=== PATIENT | male | born 1945 | race Caucasian/White ===

== ENCOUNTER 2019-12-22 13:24 | Inpatient (IN) ==
[2019-12-22] MEDS ORDERED: PIPERACILLIN/TAZOBACTAM 3,375 MG in SODIUM CHLORIDE 0.9% 100 ML IV STA (13:50)
[2019-12-22] MEDS ORDERED: VANCOMYCIN INJ 1,000 MG in SODIUM CHLORIDE 0.9% 250 ML IV STA (13:50)
[2019-12-22] MEDS ORDERED: SODIUM CHLORIDE 0.9% 1,000 ML IV STA ×2 (13:50→15:10)
[2019-12-22 14:54] LABS: Basophils # 0.1 10*3/uL (0.0-0.2); Basophils % 0.3 % (0.0-0.8); Eosinophils # 0.2 10*3/uL (0.0-0.87); Hemoglobin 10.3 GM/DL (14.0-18.0); Immature Granulocytes % 0.8 %; Immature Granulocytes Absolute 0.16 #; Lymphocytes # 1.4 10*3/uL (1.4-4.0); Lymphocytes % 7.5 % (21.2-54.2); Mean Corpuscular HGB Conc 31.2 GM/DL (32-36); Mean Corpuscular Volume 91.2 FL (87-102); Mean Platelet Volume 10.3 FL (9.6-12.0); Monocytes % 5.6 % (1.7-12.7); Neutrophils % 84.8 % (38.7-73.9); Platelet Count 300 T/CUMM (130-400); Red Blood Count 3.62 MC/CUMM (3.8-5.5); Red Cell Distribution Width 16.8 % (9.3-17.3); White Blood Count 19.3 T/CUMM (4-12)
[2019-12-22 15:03] LABS: Apearance,Urine CLOUDY (Clear); Bilirubin,Urine Negative (Negative); Blood, Urine Moderate mg/dL (Negative); Glucose,Urine (UA) Negative (Negative); Hyaline Casts,Urine 62 /LPF (0-3); Ketones,Urine Negative (Negative); Mucus,Urine Many /LPF (Occasional); Nitrite,Urine Negative (Negative); Protein,Urine 100 MG/DL; RBC,Urine 134 /HPF (0-4); Urine Color Amber (Yellow); Urine Specific Gravity 1.016 (1.001-1.035); Urine Urobilinogen < 2.0 EU/DL (0.2-1.0); WBC,Urine 237 /HPF (0-6)
[2019-12-22 15:03] LABS: INR 1.1; PT Patient Result 11.8 SECS (9.6-12.2); Partial Thromboplastin Time 30.3 SECS (20.8-36.0)
[2019-12-22 15:23] LABS: Alanine Aminotransferase 20 U/L (16-61); Albumin 1.8 G/DL (3.4-5.0); Alkaline Phosphatase 102 U/L (45-117); Aspartate Amino Transferase 24 U/L (0-37); Blood Urea Nitrogen 17 MG/DL (7-18); Calcium 8.9 MG/DL (8.5-10.1); Estimated Glom Filtration Rate 89 ML/MIN; Glucose 149 MG/DL (74-106); Osmolality,Calculated 274.1 MOS/KG (273-304); Total Protein 6.7 G/DL (6.4-8.3)
[2019-12-22] MEDS ORDERED: SODIUM CHLORIDE 0.9% 500 ML IV STA (15:41)
[2019-12-22] MEDS ORDERED: GLUCAGON 1 MG VIAL IM PRN (16:24)
[2019-12-22] MEDS ORDERED: DEXTROSE 10% 250 ML BAG IV PRN (16:24)
[2019-12-22] MEDS ORDERED: ONDANSETRON 4 MG/2 ML VIAL IV PRN (16:24)
[2019-12-22] MEDS ORDERED: ALBUTEROL 2.5 MG/3 ML NEB RESP TX PRN (16:24)
[2019-12-22] MEDS ORDERED: INSULIN LISPRO 100 UNIT/ML SUBCUT SCH (16:30)
[2019-12-22] MEDS: SODIUM CHLORIDE 0.9% 1,000 ML IV SCH (16:45)
[2019-12-22] MEDS: PHENYLEPHRINE DRIP 40 MG/250 ML PREMIX IV SCH (17:08)
[2019-12-22] MEDS: INSULIN GLARGINE 100 UNIT/ML SUBCUT SCH (17:17)
[2019-12-22] MEDS: PIPERACILLIN/TAZOBACTAM 3,375 MG in SODIUM CHLORIDE 0.9% 100 ML IV SCH (17:18)
[2019-12-22] MEDS: INSULIN REGULAR 100 UNIT/ML SUBCUT SCH ×2 (17:18→20:41)
[2019-12-22] MEDS: ZINC OXIDE TOP SCH (18:30)
[2019-12-22] MEDS: MENTHOL/ZINC OXIDE OINT 71 GM JAR TOP SCH (18:30)
[2019-12-22] MEDS: MENTHOL TOP SCH (18:30)
[2019-12-22] MEDS: CALAMINE TOP SCH (18:30)
[2019-12-22] MEDS: DILTIAZEM 30 MG TABLET PO SCH (20:36)
[2019-12-22] MEDS: ATORVASTATIN 20 MG TABLET PO SCH (20:37)
[2019-12-22] MEDS: METOPROLOL TARTRATE 100 MG TABLET PO SCH (20:37)
[2019-12-22] MEDS: APIXABAN 5 MG TABLET PO SCH (20:40)
[2019-12-22] MEDS: FAMOTIDINE 20 MG TABLET PO SCH (20:41)
[2019-12-22] MEDS: MELATONIN 3 MG TABLET PO SCH (20:41)
[2019-12-23] MEDS: MENTHOL/ZINC OXIDE OINT 71 GM JAR TOP SCH ×3 (00:01→17:06)
[2019-12-23] MEDS: MENTHOL TOP SCH ×3 (00:02→15:32)
[2019-12-23] MEDS: CALAMINE TOP SCH ×3 (00:02→15:32)
[2019-12-23] MEDS: ZINC OXIDE TOP SCH ×3 (00:02→15:32)
[2019-12-23] MEDS: PIPERACILLIN/TAZOBACTAM 3,375 MG in SODIUM CHLORIDE 0.9% 100 ML IV SCH ×3 (00:48→17:03)
[2019-12-23] MEDS: SODIUM CHLORIDE 0.9% 1,000 ML IV SCH ×3 (03:51→23:56)
[2019-12-23 06:20] LABS: Basophils % 0.3 % (0.0-0.8); Eosinophils # 0.5 10*3/uL (0.0-0.87); Eosinophils % 4.3 % (0.00-10.9); Hemoglobin 9.4 GM/DL (14.0-18.0); Immature Granulocytes % 0.7 %; Immature Granulocytes Absolute 0.09 #; Lymphocytes # 1.1 10*3/uL (1.4-4.0); Lymphocytes % 8.8 % (21.2-54.2); Mean Corpuscular HGB Conc 30.3 GM/DL (32-36); Mean Corpuscular Volume 93.1 FL (87-102); Monocytes % 4.6 % (1.7-12.7); Neutrophils % 81.3 % (38.7-73.9); Platelet Count 270 T/CUMM (130-400); Red Blood Count 3.33 MC/CUMM (3.8-5.5); White Blood Count 12.1 T/CUMM (4-12)
[2019-12-23 06:44] LABS: Alanine Aminotransferase 17 U/L (16-61); Albumin 1.7 G/DL (3.4-5.0); Alkaline Phosphatase 89 U/L (45-117); Aspartate Amino Transferase 17 U/L (0-37); Bilirubin,Total < 0.39 MG/DL (0.2-1.0); Blood Urea Nitrogen 16 MG/DL (7-18); Calcium 8.6 MG/DL (8.5-10.1); Estimated Glom Filtration Rate 104 ML/MIN; Glucose 136 MG/DL (74-106); HDL Cholesterol 39 MG/DL (40-60); Osmolality,Calculated 279.5 MOS/KG (273-304); Risk Ratio 2.85; Triglycerides 83 MG/DL (2-150); VLDL CHOLESTEROL 16.6 MG/DL
[2019-12-23] MEDS: INSULIN REGULAR 100 UNIT/ML SUBCUT SCH ×4 (08:06→20:58)
[2019-12-23] MEDS: PANTOPRAZOLE 40 MG TABLET PO SCH (09:18)
[2019-12-23] MEDS: APIXABAN 5 MG TABLET PO SCH ×2 (09:18→20:59)
[2019-12-23] MEDS: ASPIRIN CHEW 81 MG TABLET PO SCH (09:19)
[2019-12-23] MEDS: METOPROLOL TARTRATE 100 MG TABLET PO SCH ×2 (09:19→20:58)
[2019-12-23] MEDS: DILTIAZEM 30 MG TABLET PO SCH ×3 (09:19→20:59)
[2019-12-23] MEDS: FAMOTIDINE 20 MG TABLET PO SCH ×2 (09:19→20:59)
[2019-12-23] MEDS: DIGOXIN 0.125 MG TABLET PO SCH (11:59)
[2019-12-23] MEDS: PHENYLEPHRINE DRIP 40 MG/250 ML PREMIX IV SCH (15:31)
[2019-12-23] MEDS: INSULIN GLARGINE 100 UNIT/ML SUBCUT SCH (17:03)
[2019-12-23] MEDS: DOCUSATE SODIUM 100 MG CAPSULE PO SCH (20:59)
[2019-12-23] MEDS: MELATONIN 3 MG TABLET PO SCH (20:59)
[2019-12-23] MEDS: ATORVASTATIN 20 MG TABLET PO SCH (20:59)
[2019-12-24] MEDS: PIPERACILLIN/TAZOBACTAM 3,375 MG in SODIUM CHLORIDE 0.9% 100 ML IV SCH ×3 (00:33→17:13)
[2019-12-24] MEDS: MENTHOL TOP SCH ×3 (00:33→17:08)
[2019-12-24] MEDS: MENTHOL/ZINC OXIDE OINT 71 GM JAR TOP SCH ×3 (00:33→17:17)
[2019-12-24] MEDS: ZINC OXIDE TOP SCH ×3 (00:33→17:08)
[2019-12-24] MEDS: CALAMINE TOP SCH ×3 (00:33→17:08)
[2019-12-24 05:16] LABS: Basophils % 0.3 % (0.0-0.8); Eosinophils # 0.8 10*3/uL (0.0-0.87); Eosinophils % 6.6 % (0.00-10.9); Hematocrit 28.2 VOL% (42.0-52.0); Hemoglobin 8.9 GM/DL (14.0-18.0); Immature Granulocytes % 0.4 %; Immature Granulocytes Absolute 0.05 #; Lymphocytes # 0.9 10*3/uL (1.4-4.0); Mean Corpuscular HGB Conc 31.6 GM/DL (32-36); Mean Corpuscular Volume 89.5 FL (87-102); Mean Platelet Volume 9.8 FL (9.6-12.0); Monocytes % 4.4 % (1.7-12.7); Neutrophils % 80.3 % (38.7-73.9); Platelet Count 290 T/CUMM (130-400); Red Blood Count 3.15 MC/CUMM (3.8-5.5); White Blood Count 11.4 T/CUMM (4-12)
[2019-12-24 05:55] LABS: Alanine Aminotransferase 17 U/L (16-61); Albumin 1.9 G/DL (3.4-5.0); Alkaline Phosphatase 86 U/L (45-117); Aspartate Amino Transferase 21 U/L (0-37); Bilirubin,Total < 0.39 MG/DL (0.2-1.0); Blood Urea Nitrogen 11 MG/DL (7-18); Calcium 8.3 MG/DL (8.5-10.1); Estimated Glom Filtration Rate 117 ML/MIN; Glucose 59 MG/DL (74-106); Osmolality,Calculated 275.4 MOS/KG (273-304); Total Protein 6.2 G/DL (6.4-8.3)
[2019-12-24] MEDS: DOCUSATE SODIUM 100 MG CAPSULE PO SCH ×2 (08:47→20:02)
[2019-12-24] MEDS: TAMSULOSIN 0.4 MG CAPSULE PO SCH (08:47)
[2019-12-24] MEDS: FINASTERIDE 5 MG TABLET PO SCH (08:47)
[2019-12-24] MEDS: DILTIAZEM 30 MG TABLET PO SCH ×3 (08:48→20:02)
[2019-12-24] MEDS: ASPIRIN CHEW 81 MG TABLET PO SCH (08:48)
[2019-12-24] MEDS: INSULIN REGULAR 100 UNIT/ML SUBCUT SCH ×4 (08:48→21:19)
[2019-12-24] MEDS: APIXABAN 5 MG TABLET PO SCH ×2 (08:48→20:03)
[2019-12-24] MEDS: FAMOTIDINE 20 MG TABLET PO SCH ×2 (08:48→20:02)
[2019-12-24] MEDS: METOPROLOL TARTRATE 100 MG TABLET PO SCH ×2 (08:48→20:02)
[2019-12-24] MEDS: PANTOPRAZOLE 40 MG TABLET PO SCH (08:48)
[2019-12-24] MEDS: DIGOXIN 0.125 MG TABLET PO SCH (14:01)
[2019-12-24] MEDS: INSULIN GLARGINE 100 UNIT/ML SUBCUT SCH (17:07)
[2019-12-24] MEDS: SODIUM CHLORIDE 0.9% 1,000 ML IV SCH (17:08)
[2019-12-24] MEDS ORDERED: hydrALAZINE 20 MG/1 ML VIAL IV PRN (18:11)
[2019-12-24] MEDS ORDERED: ACETAMINOPHEN 325 MG TABLET PO PRN (18:43)
[2019-12-24] MEDS: MELATONIN 3 MG TABLET PO SCH (20:02)
[2019-12-24] MEDS: ATORVASTATIN 20 MG TABLET PO SCH (20:02)
[2019-12-25] MEDS: PIPERACILLIN/TAZOBACTAM 3,375 MG in SODIUM CHLORIDE 0.9% 100 ML IV SCH ×3 (01:28→17:55)
[2019-12-25] MEDS: MENTHOL TOP SCH ×3 (01:29→16:12)
[2019-12-25] MEDS: MENTHOL/ZINC OXIDE OINT 71 GM JAR TOP SCH ×3 (01:29→17:55)
[2019-12-25] MEDS: ZINC OXIDE TOP SCH ×3 (01:29→16:12)
[2019-12-25] MEDS: CALAMINE TOP SCH ×3 (01:29→16:12)
[2019-12-25 04:47] LABS: Basophils # 0.1 10*3/uL (0.0-0.2); Basophils % 0.4 % (0.0-0.8); Eosinophils # 0.7 10*3/uL (0.0-0.87); Eosinophils % 6.3 % (0.00-10.9); Hematocrit 32.2 VOL% (42.0-52.0); Immature Granulocytes % 0.5 %; Immature Granulocytes Absolute 0.06 #; Lymphocytes # 0.8 10*3/uL (1.4-4.0); Lymphocytes % 7.1 % (21.2-54.2); Mean Corpuscular HGB Conc 31.1 GM/DL (32-36); Mean Corpuscular Volume 89.7 FL (87-102); Mean Platelet Volume 9.9 FL (9.6-12.0); Monocytes % 4.3 % (1.7-12.7); Neutrophils % 81.4 % (38.7-73.9); Platelet Count 338 T/CUMM (130-400); Red Blood Count 3.59 MC/CUMM (3.8-5.5); Red Cell Distribution Width 16.6 % (9.3-17.3); White Blood Count 11.3 T/CUMM (4-12)
[2019-12-25 05:14] LABS: Albumin 1.9 G/DL (3.4-5.0); Bilirubin,Total 1.1 MG/DL (0.2-1.0); Calcium 8.9 MG/DL (8.5-10.1); Osmolality,Calculated 268.1 MOS/KG (273-304); Total Protein 6.6 G/DL (6.4-8.3)
[2019-12-25] MEDS: INSULIN REGULAR 100 UNIT/ML SUBCUT SCH ×4 (07:35→20:05)
[2019-12-25] MEDS: DILTIAZEM 30 MG TABLET PO SCH ×3 (09:38→20:05)
[2019-12-25] MEDS: FINASTERIDE 5 MG TABLET PO SCH (09:39)
[2019-12-25] MEDS: DOCUSATE SODIUM 100 MG CAPSULE PO SCH ×2 (09:39→20:06)
[2019-12-25] MEDS: METOPROLOL TARTRATE 100 MG TABLET PO SCH ×2 (09:39→20:05)
[2019-12-25] MEDS: ASPIRIN CHEW 81 MG TABLET PO SCH (09:39)
[2019-12-25] MEDS: FAMOTIDINE 20 MG TABLET PO SCH ×2 (09:39→20:06)
[2019-12-25] MEDS: TAMSULOSIN 0.4 MG CAPSULE PO SCH (09:39)
[2019-12-25] MEDS: APIXABAN 5 MG TABLET PO SCH ×2 (09:40→20:05)
[2019-12-25] MEDS: PANTOPRAZOLE 40 MG TABLET PO SCH (09:40)
[2019-12-25] MEDS: SODIUM CHLORIDE 0.9% 1,000 ML IV SCH (09:44)
[2019-12-25] MEDS: DIGOXIN 0.125 MG TABLET PO SCH (13:42)
[2019-12-25] MEDS: INSULIN GLARGINE 100 UNIT/ML SUBCUT SCH (17:22)
[2019-12-25] MEDS: MELATONIN 3 MG TABLET PO SCH (20:06)
[2019-12-25] MEDS: ATORVASTATIN 20 MG TABLET PO SCH (20:06)
[2019-12-26] MEDS: MENTHOL/ZINC OXIDE OINT 71 GM JAR TOP SCH ×3 (00:48→17:34)
[2019-12-26] MEDS: SODIUM CHLORIDE 0.9% 1,000 ML IV SCH (00:48)
[2019-12-26] MEDS: PIPERACILLIN/TAZOBACTAM 3,375 MG in SODIUM CHLORIDE 0.9% 100 ML IV SCH ×3 (00:48→17:33)
[2019-12-26] MEDS: MENTHOL TOP SCH ×3 (00:49→17:35)
[2019-12-26] MEDS: CALAMINE TOP SCH ×3 (00:49→17:35)
[2019-12-26] MEDS: ZINC OXIDE TOP SCH ×3 (00:49→17:35)
[2019-12-26 05:05] LABS: Basophils # 0.1 10*3/uL (0.0-0.2); Basophils % 0.6 % (0.0-0.8); Eosinophils # 0.7 10*3/uL (0.0-0.87); Eosinophils % 8.4 % (0.00-10.9); Hematocrit 28.2 VOL% (42.0-52.0); Hemoglobin 8.5 GM/DL (14.0-18.0); Immature Granulocytes % 0.7 %; Immature Granulocytes Absolute 0.06 #; Lymphocytes # 0.7 10*3/uL (1.4-4.0); Lymphocytes % 8.4 % (21.2-54.2); Mean Corpuscular HGB Conc 30.1 GM/DL (32-36); Mean Corpuscular Volume 92.8 FL (87-102); Monocytes % 5.7 % (1.7-12.7); Neutrophils % 76.2 % (38.7-73.9); Platelet Count 316 T/CUMM (130-400); Red Blood Count 3.04 MC/CUMM (3.8-5.5); Red Cell Distribution Width 16.4 % (9.3-17.3); White Blood Count 8.6 T/CUMM (4-12)
[2019-12-26 05:17] LABS: Calcium 8.1 MG/DL (8.5-10.1); Osmolality,Calculated 273.7 MOS/KG (273-304)
[2019-12-26 05:30] LABS: Eosinophils 8 % (0-10); Lymphocytes 8 % (20-55); Segmented Neutrophils 81 % (50-85); Total Cells Counted 100
[2019-12-26 05:31] LABS: Hypochromasia 1+; Ovalocytes Slight; Platelet Estimate Adequate
[2019-12-26] MEDS: DILTIAZEM 30 MG TABLET PO SCH ×3 (09:11→23:12)
[2019-12-26] MEDS: ASPIRIN CHEW 81 MG TABLET PO SCH (09:12)
[2019-12-26] MEDS: TAMSULOSIN 0.4 MG CAPSULE PO SCH ×2 (09:12→23:11)
[2019-12-26] MEDS: PANTOPRAZOLE 40 MG TABLET PO SCH (09:12)
[2019-12-26] MEDS: APIXABAN 5 MG TABLET PO SCH ×2 (09:12→23:11)
[2019-12-26] MEDS: DOCUSATE SODIUM 100 MG CAPSULE PO SCH ×2 (09:12→23:11)
[2019-12-26] MEDS: METOPROLOL TARTRATE 100 MG TABLET PO SCH ×2 (09:12→23:15)
[2019-12-26] MEDS: INSULIN REGULAR 100 UNIT/ML SUBCUT SCH ×4 (09:13→23:15)
[2019-12-26] MEDS: FINASTERIDE 5 MG TABLET PO SCH (09:13)
[2019-12-26] MEDS: FAMOTIDINE 20 MG TABLET PO SCH ×2 (09:13→23:14)
[2019-12-26] MEDS: DIGOXIN 0.125 MG TABLET PO SCH (11:59)
[2019-12-26] MEDS: INSULIN GLARGINE 100 UNIT/ML SUBCUT SCH (17:34)
[2019-12-26] MEDS: MELATONIN 3 MG TABLET PO SCH (23:12)
[2019-12-26] MEDS: ATORVASTATIN 20 MG TABLET PO SCH (23:12)
[2019-12-27] MEDS: PIPERACILLIN/TAZOBACTAM 3,375 MG in SODIUM CHLORIDE 0.9% 100 ML IV SCH ×3 (01:00→16:07)
[2019-12-27] MEDS: MENTHOL/ZINC OXIDE OINT 71 GM JAR TOP SCH ×3 (01:38→16:00)
[2019-12-27] MEDS: SODIUM CHLORIDE 0.9% 1,000 ML IV SCH ×3 (04:55→09:46)
[2019-12-27] MEDS: ZINC OXIDE TOP SCH ×3 (07:01→16:01)
[2019-12-27] MEDS: MENTHOL TOP SCH ×3 (07:01→16:01)
[2019-12-27] MEDS: CALAMINE TOP SCH ×3 (07:01→16:01)
[2019-12-27] MEDS: DOCUSATE SODIUM 100 MG CAPSULE PO SCH ×2 (09:43→21:26)
[2019-12-27] MEDS: APIXABAN 5 MG TABLET PO SCH ×2 (09:44→21:24)
[2019-12-27] MEDS: DILTIAZEM 30 MG TABLET PO SCH ×3 (09:44→21:24)
[2019-12-27] MEDS: PANTOPRAZOLE 40 MG TABLET PO SCH (09:44)
[2019-12-27] MEDS: METOPROLOL TARTRATE 100 MG TABLET PO SCH ×2 (09:44→21:24)
[2019-12-27] MEDS: FINASTERIDE 5 MG TABLET PO SCH (09:44)
[2019-12-27] MEDS: ASPIRIN CHEW 81 MG TABLET PO SCH (09:44)
[2019-12-27] MEDS: INSULIN REGULAR 100 UNIT/ML SUBCUT SCH ×4 (09:45→21:26)
[2019-12-27] MEDS: FAMOTIDINE 20 MG TABLET PO SCH ×2 (09:47→21:26)
[2019-12-27] MEDS: TAMSULOSIN 0.4 MG CAPSULE PO SCH ×2 (09:47→21:26)
[2019-12-27] MEDS: DIGOXIN 0.125 MG TABLET PO SCH (15:59)
[2019-12-27] MEDS: INSULIN GLARGINE 100 UNIT/ML SUBCUT SCH (16:11)
[2019-12-27] MEDS: MELATONIN 3 MG TABLET PO SCH (21:25)
[2019-12-27] MEDS: ATORVASTATIN 20 MG TABLET PO SCH (21:26)
[2019-12-28] MEDS: MENTHOL/ZINC OXIDE OINT 71 GM JAR TOP SCH ×3 (01:07→16:41)
[2019-12-28] MEDS: CALAMINE TOP SCH ×3 (01:12→16:35)
[2019-12-28] MEDS: ZINC OXIDE TOP SCH ×3 (01:12→16:35)
[2019-12-28] MEDS: MENTHOL TOP SCH ×3 (01:12→16:35)
[2019-12-28] MEDS: PIPERACILLIN/TAZOBACTAM 3,375 MG in SODIUM CHLORIDE 0.9% 100 ML IV SCH ×2 (01:12→09:08)
[2019-12-28] MEDS: INSULIN REGULAR 100 UNIT/ML SUBCUT SCH ×4 (08:15→21:32)
[2019-12-28] MEDS: TAMSULOSIN 0.4 MG CAPSULE PO SCH ×2 (09:07→21:32)
[2019-12-28] MEDS: DILTIAZEM 30 MG TABLET PO SCH ×3 (09:07→21:31)
[2019-12-28] MEDS: PANTOPRAZOLE 40 MG TABLET PO SCH (09:07)
[2019-12-28] MEDS: FINASTERIDE 5 MG TABLET PO SCH (09:07)
[2019-12-28] MEDS: ASPIRIN CHEW 81 MG TABLET PO SCH (09:07)
[2019-12-28] MEDS: FAMOTIDINE 20 MG TABLET PO SCH ×2 (09:07→21:32)
[2019-12-28] MEDS: APIXABAN 5 MG TABLET PO SCH ×2 (09:07→21:32)
[2019-12-28] MEDS: METOPROLOL TARTRATE 100 MG TABLET PO SCH ×2 (09:08→21:33)
[2019-12-28] MEDS: DOCUSATE SODIUM 100 MG CAPSULE PO SCH ×2 (09:11→21:32)
[2019-12-28] MEDS: TOBRAMYCIN IV SCH (12:10)
[2019-12-28] MEDS: SODIUM CHLORIDE 0.9% 1,000 ML IV SCH (12:10)
[2019-12-28] MEDS: SODIUM CHLORIDE 0.9% IV SCH (12:10)
[2019-12-28] MEDS: DIGOXIN 0.125 MG TABLET PO SCH (12:13)
[2019-12-28] MEDS: INSULIN GLARGINE 100 UNIT/ML SUBCUT SCH (16:41)
[2019-12-28] MEDS: ATORVASTATIN 20 MG TABLET PO SCH (21:32)
[2019-12-28] MEDS: MELATONIN 3 MG TABLET PO SCH (21:32)
[2019-12-29] MEDS: MENTHOL/ZINC OXIDE OINT 71 GM JAR TOP SCH ×2 (00:31→08:46)
[2019-12-29] MEDS: MENTHOL TOP SCH ×2 (00:32→07:57)
[2019-12-29] MEDS: CALAMINE TOP SCH ×2 (00:32→07:57)
[2019-12-29] MEDS: ZINC OXIDE TOP SCH ×2 (00:32→07:57)
[2019-12-29] MEDS: SODIUM CHLORIDE 0.9% 1,000 ML IV SCH ×2 (00:33→13:05)
[2019-12-29] MEDS: INSULIN REGULAR 100 UNIT/ML SUBCUT SCH ×2 (08:44→13:04)
[2019-12-29] MEDS: METOPROLOL TARTRATE 100 MG TABLET PO SCH (08:44)
[2019-12-29] MEDS: DILTIAZEM 30 MG TABLET PO SCH (08:44)
[2019-12-29] MEDS: ASPIRIN CHEW 81 MG TABLET PO SCH (08:44)
[2019-12-29] MEDS: DOCUSATE SODIUM 100 MG CAPSULE PO SCH (08:45)
[2019-12-29] MEDS: FAMOTIDINE 20 MG TABLET PO SCH (08:45)
[2019-12-29] MEDS: TAMSULOSIN 0.4 MG CAPSULE PO SCH (08:45)
[2019-12-29] MEDS: PANTOPRAZOLE 40 MG TABLET PO SCH (08:45)
[2019-12-29] MEDS: APIXABAN 5 MG TABLET PO SCH (08:45)
[2019-12-29] MEDS: FINASTERIDE 5 MG TABLET PO SCH (08:46)
[2019-12-29] MEDS ORDERED: BACITRACIN OINT 0.9 GM PACK TOP SCH (14:00)
[2019-12-29] MEDS: DIGOXIN 0.125 MG TABLET PO SCH (14:04)
[2019-12-29] MEDS: SODIUM CHLORIDE 0.9% IV SCH (14:04)
[2019-12-29] MEDS: TOBRAMYCIN IV SCH (14:04)
[2019-12-29 14:19] VITALS: BP 160/82
== END 2019-12-29 14:55 | DRG 871 ==
LOC: EDBD → EDUNIT# → N.ED 13:24 → SUATTDRO 15:38 → N.EDINP 15:38 → N.CC 16:10 → N.5E 12-23 18:19
PROVIDERS: ADMIT Internal Medicine; ATTEND Internal Medicine Geriatric Medicine

== ENCOUNTER 2020-06-27 14:15 | Inpatient (IN) ==
[2020-06-27] MEDS ORDERED: GLUCAGON 1 MG VIAL IM PRN (17:02)
[2020-06-27] MEDS ORDERED: ONDANSETRON 4 MG/2 ML VIAL IV PRN (17:02)
[2020-06-27] MEDS ORDERED: hydrALAZINE 20 MG/1 ML VIAL IV PRN (17:02)
[2020-06-27] MEDS ORDERED: DEXTROSE 50% 25 GM/50 ML VIAL IV PRN (17:02)
[2020-06-27 17:40] LABS: Basophils % 0.3 % (0.0-0.8); Eosinophils % 0.3 % (0.00-10.9); Hematocrit 30.2 VOL% (42.0-52.0); Hemoglobin 9.7 GM/DL (14.0-18.0); Immature Granulocytes % 0.6 %; Immature Granulocytes Absolute 0.09 #; Lymphocytes # 0.8 10*3/uL (1.4-4.0); Lymphocytes % 4.9 % (21.2-54.2); Mean Corpuscular HGB Conc 32.1 GM/DL (32-36); Mean Corpuscular Volume 97.7 FL (87-102); Mean Platelet Volume 9.2 FL (9.6-12.0); Monocytes % 4.1 % (1.7-12.7); Neutrophils % 89.8 % (38.7-73.9); Platelet Count 410 T/CUMM (130-400); Red Blood Count 3.09 MC/CUMM (3.8-5.5); Red Cell Distribution Width 13.4 % (9.3-17.3); White Blood Count 15.4 T/CUMM (4-12)
[2020-06-27 17:57] LABS: Calcium 8.5 MG/DL (8.5-10.1); Osmolality,Calculated 275.8 MOS/KG (273-304)
[2020-06-27 18:10] LABS: Lymphocytes 3 % (20-55); Platelet Estimate Adequate; Polychromasia Few; Segmented Neutrophils 94 % (50-85); Spherocytes 1+; Total Cells Counted 100
[2020-06-27] MEDS: LACTATED RINGERS 1,000 ML IV SCH (18:42)
[2020-06-27] MEDS: PIPERACILLIN/TAZOBACTAM 3,375 MG in SODIUM CHLORIDE 0.9% 100 ML IV SCH (18:43)
[2020-06-27 18:48] LABS: Risk Ratio 3.27; Thyroid Stimulating Hormone 1.09 uIU/ml (0.358-3.74); VLDL CHOLESTEROL 11.2 MG/DL
[2020-06-27] MEDS ORDERED: INSULIN LISPRO 100 UNIT/ML SUBCUT SCH (21:00)
[2020-06-27] MEDS: levETIRAcetam 500 MG TABLET PO SCH (21:16)
[2020-06-27] MEDS: TAMSULOSIN 0.4 MG CAPSULE PO SCH (21:16)
[2020-06-27] MEDS: traMADol 50 MG TABLET PO SCH (21:17)
[2020-06-27] MEDS: PREGABALIN 75 MG CAPSULE PO SCH (21:18)
[2020-06-27] MEDS: MELATONIN 3 MG TABLET NG SCH (21:18)
[2020-06-27] MEDS: DILTIAZEM 60 MG TABLET PO SCH (21:19)
[2020-06-27] MEDS: METOPROLOL TARTRATE 50 MG TABLET PO SCH (21:19)
[2020-06-27] MEDS: POTASSIUM CHLORIDE 20 MEQ TABLET PO SCH (21:22)
[2020-06-27] MEDS: INSULIN REGULAR 100 UNIT/ML SUBCUT SCH (21:26)
[2020-06-28] MEDS: PIPERACILLIN/TAZOBACTAM 3,375 MG in SODIUM CHLORIDE 0.9% 100 ML IV SCH ×3 (02:30→17:01)
[2020-06-28 05:45] LABS: Basophils % 0.2 % (0.0-0.8); Eosinophils # 0.1 10*3/uL (0.0-0.87); Eosinophils % 1.1 % (0.00-10.9); Hematocrit 25.4 VOL% (42.0-52.0); Hemoglobin 8.1 GM/DL (14.0-18.0); Immature Granulocytes % 0.7 %; Immature Granulocytes Absolute 0.09 #; Lymphocytes # 1.4 10*3/uL (1.4-4.0); Lymphocytes % 11.2 % (21.2-54.2); Mean Corpuscular HGB Conc 31.9 GM/DL (32-36); Mean Corpuscular Volume 96.2 FL (87-102); Mean Platelet Volume 9.6 FL (9.6-12.0); Neutrophils % 78.8 % (38.7-73.9); Platelet Count 378 T/CUMM (130-400); Red Blood Count 2.64 MC/CUMM (3.8-5.5); Red Cell Distribution Width 13.6 % (9.3-17.3); White Blood Count 12.3 T/CUMM (4-12)
[2020-06-28 05:46] LABS: Osmolality,Calculated 276.7 MOS/KG (273-304)
[2020-06-28] MEDS ORDERED: ATORVASTATIN 20 MG TABLET PO SCH (09:00)
[2020-06-28] MEDS: INSULIN REGULAR 100 UNIT/ML SUBCUT SCH ×4 (09:45→21:09)
[2020-06-28] MEDS: INSULIN GLARGINE 100 UNIT/ML SUBCUT SCH ×2 (09:45→17:04)
[2020-06-28] MEDS ORDERED: MIDAZOLAM 2 MG/2 ML VIAL ONE (12:39)
[2020-06-28] MEDS ORDERED: LIDOCAINE 2% 5 ML VIAL ONE (12:39)
[2020-06-28] MEDS ORDERED: propofoL 200 MG/20 ML VIAL IV ONE (12:39)
[2020-06-28] MEDS ORDERED: fentaNYL 100 MCG/2 ML VIAL ONE (12:40)
[2020-06-28] MEDS ORDERED: PHENYLEPHRINE 10 MG/1 ML VIAL IV ONE (12:40)
[2020-06-28] MEDS: DILTIAZEM 60 MG TABLET PO SCH ×3 (13:57→20:52)
[2020-06-28] MEDS: TAMSULOSIN 0.4 MG CAPSULE PO SCH ×2 (14:51→20:51)
[2020-06-28] MEDS: PANTOPRAZOLE 40 MG TABLET PO SCH (14:51)
[2020-06-28] MEDS: ASCORBIC ACID 500 MG TABLET PO SCH (14:51)
[2020-06-28] MEDS: FUROSEMIDE 20 MG TABLET PO SCH (14:52)
[2020-06-28] MEDS: FERROUS SULFATE 325 MG TABLET PO SCH (14:52)
[2020-06-28] MEDS: POTASSIUM CHLORIDE 20 MEQ TABLET PO SCH ×2 (14:52→21:04)
[2020-06-28] MEDS: METOPROLOL TARTRATE 50 MG TABLET PO SCH ×2 (14:52→20:52)
[2020-06-28] MEDS: levETIRAcetam 500 MG TABLET PO SCH ×2 (14:53→21:04)
[2020-06-28] MEDS: DIGOXIN 0.125 MG TABLET PO SCH (14:53)
[2020-06-28] MEDS: FINASTERIDE 5 MG TABLET PO SCH (14:54)
[2020-06-28] MEDS: MENTHOL/ZINC OXIDE OINT 71 GM JAR TOP SCH ×2 (14:54→20:52)
[2020-06-28] MEDS: NYSTATIN CREAM 15 GM TUBE TOP SCH ×2 (14:55→21:05)
[2020-06-28] MEDS: LACTATED RINGERS 1,000 ML IV SCH (14:57)
[2020-06-28] MEDS: traMADol 50 MG TABLET PO SCH ×2 (14:58→20:51)
[2020-06-28] MEDS: PREGABALIN 75 MG CAPSULE PO SCH ×2 (14:58→20:51)
[2020-06-28] MEDS ORDERED: DEXTROSE 50% 25 GM/50 ML VIAL IV PRN (16:59)
[2020-06-28] MEDS ORDERED: ENOXAPARIN 80 MG/0.8 ML SYRINGE SUBCUT ONE (17:00)
[2020-06-28] MEDS: MELATONIN 3 MG TABLET NG SCH (20:52)
[2020-06-28] MEDS: ATORVASTATIN 20 MG TABLET PO SCH (20:52)
[2020-06-28] MEDS: ACETAMINOPHEN 325 MG TABLET PO PRN (23:50)
[2020-06-29] MEDS: PIPERACILLIN/TAZOBACTAM 3,375 MG in SODIUM CHLORIDE 0.9% 100 ML IV SCH ×3 (02:26→17:48)
[2020-06-29 06:41] LABS: Basophils % 0.3 % (0.0-0.8); Eosinophils # 0.3 10*3/uL (0.0-0.87); Eosinophils % 2.6 % (0.00-10.9); Hematocrit 24.9 VOL% (42.0-52.0); Hemoglobin 7.9 GM/DL (14.0-18.0); Immature Granulocytes % 0.9 %; Immature Granulocytes Absolute 0.11 #; Lymphocytes # 1.6 10*3/uL (1.4-4.0); Lymphocytes % 13.2 % (21.2-54.2); Mean Corpuscular HGB Conc 31.7 GM/DL (32-36); Mean Corpuscular Volume 95.8 FL (87-102); Mean Platelet Volume 9.7 FL (9.6-12.0); Monocytes % 9.6 % (1.7-12.7); Neutrophils % 73.4 % (38.7-73.9); Platelet Count 360 T/CUMM (130-400); Red Cell Distribution Width 13.7 % (9.3-17.3); White Blood Count 11.8 T/CUMM (4-12)
[2020-06-29 06:59] LABS: Calcium 8.3 MG/DL (8.5-10.1); Osmolality,Calculated 274.8 MOS/KG (273-304)
[2020-06-29] MEDS: FINASTERIDE 5 MG TABLET PO SCH (10:14)
[2020-06-29] MEDS: levETIRAcetam 500 MG TABLET PO SCH ×2 (10:14→22:21)
[2020-06-29] MEDS: ASCORBIC ACID 500 MG TABLET PO SCH (10:14)
[2020-06-29] MEDS: METOPROLOL TARTRATE 50 MG TABLET PO SCH ×2 (10:15→22:21)
[2020-06-29] MEDS: DILTIAZEM 60 MG TABLET PO SCH ×3 (10:16→22:20)
[2020-06-29] MEDS: FUROSEMIDE 20 MG TABLET PO SCH (10:16)
[2020-06-29] MEDS: TAMSULOSIN 0.4 MG CAPSULE PO SCH ×2 (10:16→22:22)
[2020-06-29] MEDS: traMADol 50 MG TABLET PO SCH ×2 (10:17→22:15)
[2020-06-29] MEDS: FERROUS SULFATE 325 MG TABLET PO SCH (10:17)
[2020-06-29] MEDS: POTASSIUM CHLORIDE 20 MEQ TABLET PO SCH ×2 (10:18→22:14)
[2020-06-29] MEDS: NYSTATIN CREAM 15 GM TUBE TOP SCH ×2 (10:19→22:24)
[2020-06-29] MEDS: INSULIN REGULAR 100 UNIT/ML SUBCUT SCH ×4 (10:19→22:22)
[2020-06-29] MEDS: MENTHOL/ZINC OXIDE OINT 71 GM JAR TOP SCH ×2 (10:20→22:23)
[2020-06-29] MEDS: PREGABALIN 75 MG CAPSULE PO SCH ×2 (10:21→22:21)
[2020-06-29] MEDS: PANTOPRAZOLE 40 MG TABLET PO SCH (10:32)
[2020-06-29] MEDS: INSULIN GLARGINE 100 UNIT/ML SUBCUT SCH ×2 (10:32→17:48)
[2020-06-29] MEDS ORDERED: VANCOMYCIN INJ 1,750 MG in SODIUM CHLORIDE 0.9% 500 ML IV ONE (13:00)
[2020-06-29] MEDS: DIGOXIN 0.125 MG TABLET PO SCH (14:31)
[2020-06-29] MEDS: fentaNYL 25 MCG/HR PATCH TRANSDERM SCH ×2 (14:32→14:33)
[2020-06-29] MEDS: LACTATED RINGERS 1,000 ML IV SCH ×2 (14:34→23:50)
[2020-06-29] MEDS: ACETAMINOPHEN 325 MG TABLET PO PRN (16:19)
[2020-06-29] MEDS: MELATONIN 3 MG TABLET NG SCH (22:18)
[2020-06-29] MEDS: ATORVASTATIN 20 MG TABLET PO SCH (22:21)
[2020-06-29] MEDS: APIXABAN 5 MG TABLET PO SCH (22:22)
[2020-06-30] MEDS: PIPERACILLIN/TAZOBACTAM 3,375 MG in SODIUM CHLORIDE 0.9% 100 ML IV SCH ×3 (00:33→18:23)
[2020-06-30 05:22] LABS: Basophils % 0.3 % (0.0-0.8); Eosinophils # 0.3 10*3/uL (0.0-0.87); Eosinophils % 3.3 % (0.00-10.9); Hematocrit 24.7 VOL% (42.0-52.0); Immature Granulocytes % 0.8 %; Immature Granulocytes Absolute 0.07 #; Lymphocytes # 1.1 10*3/uL (1.4-4.0); Lymphocytes % 12.3 % (21.2-54.2); Mean Corpuscular HGB Conc 32.4 GM/DL (32-36); Mean Corpuscular Volume 95.4 FL (87-102); Mean Platelet Volume 9.5 FL (9.6-12.0); Monocytes % 8.6 % (1.7-12.7); Neutrophils % 74.7 % (38.7-73.9); Platelet Count 358 T/CUMM (130-400); Red Blood Count 2.59 MC/CUMM (3.8-5.5); Red Cell Distribution Width 13.5 % (9.3-17.3); White Blood Count 9.3 T/CUMM (4-12)
[2020-06-30 05:28] LABS: Basophils % 0.2 % (0.0-0.8); Eosinophils # 0.3 10*3/uL (0.0-0.87); Eosinophils % 3.5 % (0.00-10.9); Hematocrit 24.6 VOL% (42.0-52.0); Immature Granulocytes % 0.8 %; Immature Granulocytes Absolute 0.07 #; Lymphocytes # 1.2 10*3/uL (1.4-4.0); Lymphocytes % 12.7 % (21.2-54.2); Mean Corpuscular HGB Conc 32.5 GM/DL (32-36); Mean Corpuscular Volume 95.3 FL (87-102); Mean Platelet Volume 9.5 FL (9.6-12.0); Monocytes % 8.4 % (1.7-12.7); Neutrophils % 74.4 % (38.7-73.9); Platelet Count 360 T/CUMM (130-400); Red Blood Count 2.58 MC/CUMM (3.8-5.5); Red Cell Distribution Width 13.4 % (9.3-17.3); White Blood Count 9.3 T/CUMM (4-12)
[2020-06-30 05:46] LABS: Folate 12.8 NG/ML (5.4-24.0); Vitamin B12 829 PG/ML (211-911)
[2020-06-30 05:48] LABS: Calcium 7.9 MG/DL (8.5-10.1); Osmolality,Calculated 270.1 MOS/KG (273-304)
[2020-06-30 06:10] LABS: % Iron Saturation 11.6 % (18-50)
[2020-06-30 07:22] LABS: Sedimentation Rate-Westergren 129 MM/HR (0-20)
[2020-06-30] MEDS: FINASTERIDE 5 MG TABLET PO SCH (09:11)
[2020-06-30] MEDS: FERROUS SULFATE 325 MG TABLET PO SCH (09:12)
[2020-06-30] MEDS: TAMSULOSIN 0.4 MG CAPSULE PO SCH ×2 (09:12→21:31)
[2020-06-30] MEDS: DILTIAZEM 60 MG TABLET PO SCH ×3 (09:12→21:31)
[2020-06-30] MEDS: ASCORBIC ACID 500 MG TABLET PO SCH (09:12)
[2020-06-30] MEDS: ASPIRIN CHEW 81 MG TABLET PO SCH (09:12)
[2020-06-30] MEDS: PANTOPRAZOLE 40 MG TABLET PO SCH (09:12)
[2020-06-30] MEDS: POTASSIUM CHLORIDE 20 MEQ TABLET PO SCH ×2 (09:12→21:33)
[2020-06-30] MEDS: FUROSEMIDE 20 MG TABLET PO SCH (09:13)
[2020-06-30] MEDS: APIXABAN 5 MG TABLET PO SCH ×2 (09:13→21:31)
[2020-06-30] MEDS: METOPROLOL TARTRATE 50 MG TABLET PO SCH ×2 (09:13→21:31)
[2020-06-30] MEDS: levETIRAcetam 500 MG TABLET PO SCH ×2 (09:13→21:32)
[2020-06-30] MEDS: INSULIN REGULAR 100 UNIT/ML SUBCUT SCH ×4 (09:14→21:32)
[2020-06-30] MEDS: INSULIN GLARGINE 100 UNIT/ML SUBCUT SCH ×2 (09:14→17:54)
[2020-06-30] MEDS: NYSTATIN CREAM 15 GM TUBE TOP SCH ×2 (09:15→21:33)
[2020-06-30] MEDS: traMADol 50 MG TABLET PO SCH ×2 (09:15→21:33)
[2020-06-30] MEDS: PREGABALIN 75 MG CAPSULE PO SCH ×2 (09:15→21:31)
[2020-06-30] MEDS: DIGOXIN 0.125 MG TABLET PO SCH (13:53)
[2020-06-30] MEDS: MENTHOL/ZINC OXIDE OINT 71 GM JAR TOP SCH ×2 (13:54→21:32)
[2020-06-30] MEDS: VANCOMYCIN INJ 1,250 MG in SODIUM CHLORIDE 0.9% 250 ML IV SCH (13:54)
[2020-06-30] MEDS: LACTATED RINGERS 1,000 ML IV SCH (19:10)
[2020-06-30] MEDS: ATORVASTATIN 20 MG TABLET PO SCH (21:30)
[2020-06-30] MEDS: MELATONIN 3 MG TABLET NG SCH (21:34)
[2020-07-01] MEDS: VANCOMYCIN INJ 1,250 MG in SODIUM CHLORIDE 0.9% 250 ML IV SCH ×3 (00:44→23:01)
[2020-07-01] MEDS: PIPERACILLIN/TAZOBACTAM 3,375 MG in SODIUM CHLORIDE 0.9% 100 ML IV SCH ×3 (01:55→18:55)
[2020-07-01] MEDS: INSULIN GLARGINE 100 UNIT/ML SUBCUT SCH ×2 (09:43→17:02)
[2020-07-01] MEDS: MENTHOL/ZINC OXIDE OINT 71 GM JAR TOP SCH ×2 (09:44→21:44)
[2020-07-01] MEDS: NYSTATIN CREAM 15 GM TUBE TOP SCH ×2 (09:44→21:44)
[2020-07-01] MEDS: DILTIAZEM 60 MG TABLET PO SCH ×3 (09:45→21:40)
[2020-07-01] MEDS: POTASSIUM CHLORIDE 20 MEQ TABLET PO SCH ×2 (09:45→20:52)
[2020-07-01] MEDS: FINASTERIDE 5 MG TABLET PO SCH (09:45)
[2020-07-01] MEDS: ASPIRIN CHEW 81 MG TABLET PO SCH (09:45)
[2020-07-01] MEDS: TAMSULOSIN 0.4 MG CAPSULE PO SCH ×2 (09:46→21:43)
[2020-07-01] MEDS: FERROUS SULFATE 325 MG TABLET PO SCH (09:46)
[2020-07-01] MEDS: ASCORBIC ACID 500 MG TABLET PO SCH (09:46)
[2020-07-01] MEDS: levETIRAcetam 500 MG TABLET PO SCH ×2 (09:46→21:42)
[2020-07-01] MEDS: METOPROLOL TARTRATE 50 MG TABLET PO SCH ×2 (09:46→21:42)
[2020-07-01] MEDS: FUROSEMIDE 20 MG TABLET PO SCH (09:46)
[2020-07-01] MEDS: APIXABAN 5 MG TABLET PO SCH ×2 (09:46→21:43)
[2020-07-01] MEDS: PREGABALIN 75 MG CAPSULE PO SCH ×2 (09:47→21:42)
[2020-07-01] MEDS: traMADol 50 MG TABLET PO SCH ×2 (09:47→21:43)
[2020-07-01] MEDS: INSULIN REGULAR 100 UNIT/ML SUBCUT SCH ×4 (09:47→21:38)
[2020-07-01] MEDS: PANTOPRAZOLE 40 MG TABLET PO SCH (10:38)
[2020-07-01] MEDS: DIGOXIN 0.125 MG TABLET PO SCH (14:09)
[2020-07-01 16:15] LABS: Hemoglobin A1 (Alkaline) 97.1 % (96.5-98.5); Hemoglobin A2 (Alkaline) 2.9 % (1.5-3.5)
[2020-07-01] MEDS: ATORVASTATIN 20 MG TABLET PO SCH (21:42)
[2020-07-01] MEDS: MELATONIN 3 MG TABLET NG SCH (21:43)
[2020-07-02] MEDS: PIPERACILLIN/TAZOBACTAM 3,375 MG in SODIUM CHLORIDE 0.9% 100 ML IV SCH ×3 (00:55→18:43)
[2020-07-02 06:17] LABS: Basophils % 0.2 % (0.0-0.8); Eosinophils # 0.3 10*3/uL (0.0-0.87); Eosinophils % 3.7 % (0.00-10.9); Hematocrit 26.1 VOL% (42.0-52.0); Hemoglobin 8.3 GM/DL (14.0-18.0); Immature Granulocytes % 0.8 %; Immature Granulocytes Absolute 0.07 #; Lymphocytes # 1.1 10*3/uL (1.4-4.0); Lymphocytes % 13.1 % (21.2-54.2); Mean Corpuscular HGB Conc 31.8 GM/DL (32-36); Mean Corpuscular Volume 94.9 FL (87-102); Mean Platelet Volume 9.4 FL (9.6-12.0); Monocytes % 8.4 % (1.7-12.7); Neutrophils % 73.8 % (38.7-73.9); Platelet Count 387 T/CUMM (130-400); Red Blood Count 2.75 MC/CUMM (3.8-5.5); Red Cell Distribution Width 13.2 % (9.3-17.3); White Blood Count 8.7 T/CUMM (4-12)
[2020-07-02 06:47] LABS: Osmolality,Calculated 273.8 MOS/KG (273-304)
[2020-07-02] MEDS: INSULIN REGULAR 100 UNIT/ML SUBCUT SCH ×4 (08:12→21:48)
[2020-07-02] MEDS: INSULIN GLARGINE 100 UNIT/ML SUBCUT SCH ×2 (09:53→17:05)
[2020-07-02] MEDS: APIXABAN 5 MG TABLET PO SCH ×2 (09:55→21:24)
[2020-07-02] MEDS: TAMSULOSIN 0.4 MG CAPSULE PO SCH ×2 (09:55→21:20)
[2020-07-02] MEDS: DILTIAZEM 60 MG TABLET PO SCH ×3 (09:56→21:20)
[2020-07-02] MEDS: FUROSEMIDE 20 MG TABLET PO SCH (09:59)
[2020-07-02] MEDS: levETIRAcetam 500 MG TABLET PO SCH ×2 (09:59→21:24)
[2020-07-02] MEDS: ASCORBIC ACID 500 MG TABLET PO SCH (10:00)
[2020-07-02] MEDS: METOPROLOL TARTRATE 50 MG TABLET PO SCH ×2 (10:01→21:24)
[2020-07-02] MEDS: POTASSIUM CHLORIDE 20 MEQ TABLET PO SCH ×2 (10:01→21:24)
[2020-07-02] MEDS: FERROUS SULFATE 325 MG TABLET PO SCH (10:02)
[2020-07-02] MEDS: FINASTERIDE 5 MG TABLET PO SCH (10:02)
[2020-07-02] MEDS: ASPIRIN CHEW 81 MG TABLET PO SCH (10:02)
[2020-07-02] MEDS: fentaNYL 25 MCG/HR PATCH TRANSDERM SCH (10:04)
[2020-07-02] MEDS: MENTHOL/ZINC OXIDE OINT 71 GM JAR TOP SCH ×2 (10:07→21:26)
[2020-07-02] MEDS: NYSTATIN CREAM 15 GM TUBE TOP SCH ×2 (10:08→21:26)
[2020-07-02] MEDS: PANTOPRAZOLE 40 MG TABLET PO SCH (10:08)
[2020-07-02] MEDS: traMADol 50 MG TABLET PO SCH ×2 (10:08→21:27)
[2020-07-02] MEDS: PREGABALIN 75 MG CAPSULE PO SCH ×2 (10:08→21:20)
[2020-07-02] MEDS: DIGOXIN 0.125 MG TABLET PO SCH (12:41)
[2020-07-02] MEDS: COLLAGENASE OINT 30 GM TUBE TOP SCH (15:48)
[2020-07-02] MEDS: VANCOMYCIN INJ 1,250 MG in SODIUM CHLORIDE 0.9% 250 ML IV SCH (17:06)
[2020-07-02] MEDS: LACTATED RINGERS 1,000 ML IV SCH (18:05)
[2020-07-02] MEDS: MELATONIN 3 MG TABLET NG SCH (21:22)
[2020-07-02] MEDS: ATORVASTATIN 20 MG TABLET PO SCH (21:23)
[2020-07-03] MEDS: PIPERACILLIN/TAZOBACTAM 3,375 MG in SODIUM CHLORIDE 0.9% 100 ML IV SCH (02:49)
[2020-07-03 06:31] LABS: Basophils % 0.3 % (0.0-0.8); Eosinophils # 0.4 10*3/uL (0.0-0.87); Hemoglobin 7.6 GM/DL (14.0-18.0); Immature Granulocytes Absolute 0.09 #; Lymphocytes # 1.2 10*3/uL (1.4-4.0); Lymphocytes % 13.4 % (21.2-54.2); Mean Corpuscular HGB Conc 31.7 GM/DL (32-36); Mean Corpuscular Volume 96.8 FL (87-102); Mean Platelet Volume 9.1 FL (9.6-12.0); Monocytes % 7.4 % (1.7-12.7); Neutrophils % 73.9 % (38.7-73.9); Platelet Count 379 T/CUMM (130-400); Red Blood Count 2.48 MC/CUMM (3.8-5.5); Red Cell Distribution Width 13.3 % (9.3-17.3); White Blood Count 9.3 T/CUMM (4-12)
[2020-07-03 06:56] LABS: Calcium 7.6 MG/DL (8.5-10.1); Osmolality,Calculated 269.2 MOS/KG (273-304)
[2020-07-03 07:00] LABS: Band Neutrophils 4 % (0-10); Eosinophils 3 % (0-10); Lymphocytes 14 % (20-55); Platelet Estimate Normal; Segmented Neutrophils 74 % (50-85); Total Cells Counted 100
[2020-07-03 07:01] LABS: Hypochromasia 2+
[2020-07-03] MEDS ORDERED: SULFAMETHOX/TRIMETHOPRIM 800-160 MG TABLET PO SCH (09:00)
[2020-07-03] MEDS: INSULIN GLARGINE 100 UNIT/ML SUBCUT SCH (09:50)
[2020-07-03] MEDS: POTASSIUM CHLORIDE 20 MEQ TABLET PO SCH (09:51)
[2020-07-03] MEDS: PANTOPRAZOLE 40 MG TABLET PO SCH (09:51)
[2020-07-03] MEDS: FUROSEMIDE 20 MG TABLET PO SCH (09:51)
[2020-07-03] MEDS: TAMSULOSIN 0.4 MG CAPSULE PO SCH (09:51)
[2020-07-03] MEDS: APIXABAN 5 MG TABLET PO SCH (09:51)
[2020-07-03] MEDS: ASCORBIC ACID 500 MG TABLET PO SCH (09:51)
[2020-07-03] MEDS: levETIRAcetam 500 MG TABLET PO SCH (09:52)
[2020-07-03] MEDS: FERROUS SULFATE 325 MG TABLET PO SCH (09:52)
[2020-07-03] MEDS: DILTIAZEM 60 MG TABLET PO SCH ×2 (09:52→16:25)
[2020-07-03] MEDS: ASPIRIN CHEW 81 MG TABLET PO SCH (09:52)
[2020-07-03] MEDS: METOPROLOL TARTRATE 50 MG TABLET PO SCH (09:52)
[2020-07-03] MEDS: FINASTERIDE 5 MG TABLET PO SCH (09:52)
[2020-07-03] MEDS: MENTHOL/ZINC OXIDE OINT 71 GM JAR TOP SCH (09:54)
[2020-07-03] MEDS: NYSTATIN CREAM 15 GM TUBE TOP SCH (09:54)
[2020-07-03] MEDS: COLLAGENASE OINT 30 GM TUBE TOP SCH (09:54)
[2020-07-03] MEDS: traMADol 50 MG TABLET PO SCH (09:54)
[2020-07-03] MEDS: PREGABALIN 75 MG CAPSULE PO SCH (09:55)
[2020-07-03] MEDS: INSULIN REGULAR 100 UNIT/ML SUBCUT SCH ×3 (11:00→16:38)
[2020-07-03] MEDS: DIGOXIN 0.125 MG TABLET PO SCH (12:48)
[2020-07-03 15:47] VITALS: BP 110/54
[2020-07-03 16:01] LABS: Soluble Transf Receptor (sTfR) 2.6 mg/L (1.8 - 4.6)
[2020-07-04] MEDS ORDERED: CHOLECALCIFEROL 5,000 UNIT TABLET PO SCH (09:00)
== END 2020-07-03 16:43 | disposition home health service (06) | DRG 255 ==
LOC: SUATTDRO 14:53 → N.5E 14:53
PROVIDERS: ADMIT Internal Medicine; ATTEND Family Medicine